=== PATIENT | female | born 1960 | race Caucasian/White ===

== ENCOUNTER → 2016-06-08 | Outpatient (CLI) | payer OTHER ==
--- NOTE | 2016-06-08 13:24 | RAD ---
Radionuclide bone scan, 06/08/2016: History: Knee pain Whole body imaging was performed following IV injection of 26.0 mCi of technetium 99m MDP. The study is correlated with knee radiographs from 05/08/2016. The following findings are delineated: 1. There is moderately increased activity at the right knee joint laterally. This appears to involve both sides of the knee joint in a pattern suggesting arthritis. There is also mildly increased activity involving the patella, likely arthritic in nature. There is a lesser degree of increased activity at the left knee. 2. No abnormal radionuclide uptake is seen in the region of the lytic lesion identified in the distal right femoral shaft on the 05/08/2016 radiographs. This would suggest a benign etiology. Note is made that there are malignant processes such as multiple myeloma which can produce a negative or cold bone scan. 3. Increased activity at both mid foot levels and both shoulders is likely arthritic in nature. 4. Activity in the radionuclide about the skeleton and major joints is otherwise unremarkable.
== END | disposition home or self-care (01) ==
LOC: NM 08:10
PROVIDERS: ATTEND Nurse Practitioner Family
DX: M25.821 Other specified joint disorders, right elbow (principal)
CPT/HCPCS: 78306; 96374; A9503

== ENCOUNTER → 2018-07-30 | Outpatient (CLI) | payer OTHER ==
--- NOTE | 2018-07-30 13:04 | RAD ---
Right knee, 3 views, 07/30/2018: HISTORY: Knee pain AP standing views of both knees as well as lateral and tangential patellar views were obtained as requested. There is moderate narrowing of the lateral compartment of the right knee joint with moderate marginal spurring. There is moderate spurring at the right patellofemoral articulation. No fracture or subluxation is evident. No large joint effusion is seen. Incidental note is made of mild narrowing of the lateral compartment of the left knee joint with mild marginal spurring. IMPRESSION: 1. Moderate hypertrophic degenerative change at the right knee. 2. No acute bony abnormality is detected. Electronically signed by: Fei Her MD (07/30/2018 1:00 PM) [facility]
== END | disposition home or self-care (01) ==
LOC: RAD 12:25
PROVIDERS: ATTEND Orthopaedic Surgery
DX: M17.11 Unilateral primary osteoarthritis, right knee (principal); M76.891 Other specified enthesopathies of right lower limb, excluding foot
CPT/HCPCS: 73564

== ENCOUNTER → 2021-01-24 | Outpatient (CLI) | payer OTHER ==
--- NOTE | 2021-01-24 12:40 | RAD ---
INDICATION: Screening for osteopenia/osteoporosis. Postmenopausal screening COMPARISON: None. TECHNIQUE: Bone densitometry was performed through the lumbar spine and proximal femur. IMPRESSION: Lumbar Spine: BMD: 1.25 T-Score: 0.6 Range: Normal. Degenerative changes of spine. Proximal Femur: BMD: 0.89 T-Score: -0.5 Range: Normal World Health Organization Criteria for Bone Density: T-Score: > -1.0: Normal Range < -1.0 to -2.5: Osteopenic Range < -2.5: Osteoporotic Range Electronically signed by: Darinel Farfan MD (01/24/2021 12:37 PM) [id number]
--- NOTE | 2021-01-25 14:52 | RAD ---
INDICATION : Routine Screening. COMPARISON: Priors including January 24, 2018 TECHNIQUE: Standard mammogram screening views of the bilateral breasts were obtained with 3D tomosynt hesis. CAD was utilized. FINDINGS: The breasts are scattered density. No definite suspicious mass. Scattered calcifications again seen. IMPRESSION: BI-RADS Category 2: Benign findings. The patient was placed into the recall system with a suggested recall date for follow up imaging. Mammography is the most sensitive method for finding small breast cancers, but it does not detect the m all and is not a substitute for careful clinical examination. A negative mammogram does not negate a clinically suspicious finding and should not result in delay in biopsying a clinically suspicious abnormality. Electronically signed by: Darinel Farfan MD (01/25/2021 2:49 PM) [id number]
== END ==
LOC: MAMMO 10:47
PROVIDERS: ATTEND Physician Assistant Medical
DX: Z12.31 Encounter for screening mammogram for malignant neoplasm of breast (principal); Z13.820 Encounter for screening for osteoporosis; N95.9 Unspecified menopausal and perimenopausal disorder
CPT/HCPCS: 77067; 77080